=== PATIENT | female | born 1960 | race Caucasian/White ===

== ENCOUNTER 2018-04-12 18:02 | Observation (INO) ==
[2018-04-12] MEDS ORDERED: Sod Chloride 0.9% Inj 1,000 ML IV.SIG ONE (18:49)
[2018-04-12] MEDS ORDERED: Sod Chloride 0.9% Inj 1,000 ML IV.SIG SCH ×2 (19:00→20:00)
[2018-04-12 19:08] LABS: VBG Base Excess 0.4 mmol/L (-2-2); VBG Blood Gas Oxygen Content 8.4 Vol % (9.0-17.0); VBG PCO2 28 mmHG (44-48); VBG PH 7.53 (7.360-7.400); VBG PO2 30 mmHG (35-40)
[2018-04-12 19:10] LABS: Baso % (Auto) 0.2 % (0.0-2.0); Hemoglobin 10.8 gm/dL (11.6-15.3); Lymph # (Auto) 0.7 th/mm3 (1.0-4.8); Lymph % (Auto) 6.2 % (9.0-44.0); Mean Corpuscular HGB Conc 32.7 % (32.0-36.0); Mean Corpuscular Hemoglobin 29.2 pg (27.0-34.0); Mean Corpuscular Volume 89.4 fL (80.0-100.0); Mean Platelet Volume 9.6 fL (7.0-11.0); Mono # (Auto) 0.5 th/mm3 (0.0-0.9); Neut # (Auto) 10.3 th/mm3 (1.8-7.7); Neut % (Auto) 89.6 % (16.0-70.0); Platelet Count 228 th/mm3 (150-450); Red Cell Distribution Width 13.2 % (11.6-17.2); White Blood Count 11.5 th/mm3 (4.0-11.0)
--- NOTE | 2018-04-12 19:21 | ED ---
HPI General Chief complaint: Nausea/Vomiting/Diarrhea Stated complaint: vomitting Time Seen by Provider: 04/12/18 18:41 History of Present Illness HPI Narrative: Patient is a 58-year-old female that presents for the evaluation of nausea and vomiting. The patient states that her symptoms began yesterday around 2pm. The patient's daughter is at the bedside and helps provide some of the history. The patient and daughter are visiting from [place]. The patient states that yesterday she started to vomit and has not been able to stop. She also states that she is also experiencing diarrhea which she says started last night. She has not been able to eat or take any of her medications today. The daughter states that she was able to drink half of a Gatorade today. The patient also reports abdominal pain that is located mostly on the left side. She rates her current pain a 7/10 on a pain scale. The patient has a past medical history of type II diabetes and states that she has had a hard time controlling her sugars. Upon review of symptoms the patient denies fever and she does report feeling chills. She denies chest pain. Patient reports some shortness of breath and cough. She states that these symptoms are typical for her to experience after she discontinues her Furosemide. The patient and daughter state that she stopped taking Furosemide for swelling on Friday. The patient denies dizziness and states that she does have a headache which she states she thinks is due to dehydration. Related Data Home Medications Medication Instructions Recorded Confirmed furosemide 40 mg PO DAILY 04/12/18 04/12/18 gabapentin [Neurontin] mg PO TID 04/12/18 lisinopril-hydrochlorothiazide 1 tab PO DAILY 04/12/18 04/12/18 Allergies Allergy/AdvReac Type Severity Reaction Status Date / Time No Known Allergies Allergy Unverified 04/12/18 18:35 [facility] Medical History Medical History CHF (congestive heart failure) (Acute) Diabetes (Acute) Hypertension (Acute) IBS (irritable bowel syndrome) (Acute) Social History Social History Substance History: No History of Abuse Second Hand Smoke Exposure: No Smoking Status: Never smoker How Often Do You Have a Drink Containing Alcohol: Monthly or less Recent Travel in [facility] within the Last 8 Weeks: No Recent Out of Country Travel within the Last 8 Weeks: No Immunization History Tetanus Immunization: <5 Years Exam Narrative Exam Narrative: GENERAL: Well-appearing SKIN: Focused skin assessment warm/dry. HEAD: Atraumatic. Normocephalic. EYES: Pupils equal and round. No scleral icterus. No injection or drainage. ENT: No nasal bleeding or discharge. Mucous membranes pink and moist. Tongue is midline. No uvula deviation. NECK: Trachea midline. No JVD. CARDIOVASCULAR: Regular rate and rhythm. No murmur appreciated. RESPIRATORY: No accessory muscle use. Clear to auscultation. Breath sounds equal bilaterally. GASTROINTESTINAL: Abdomen soft, slightly tender to the epigastric area, nondistended. Hepatic and splenic margins not palpable. MUSCULOSKELETAL: No obvious deformities. No clubbing. No cyanosis. No edema. Full range of motion of the upper and lower extremities bilaterally. 2+ pulses bilaterally. NEUROLOGICAL: Awake and alert. No obvious cranial nerve deficits. Motor grossly within normal limits. Normal speech. PSYCHIATRIC: Appropriate mood and affect; insight and judgment normal. Course Initial Documented Vital Signs Temperature 98.8 F 04/12/18 18:22 Pulse Rate 92 H 04/12/18 18:22 Respiratory Rate 24 04/12/18 18:22 Blood Pressure 186/92 H 04/12/18 18:22 Pulse Oximetry 98 04/12/18 18:22 Last Documented Vital Signs Temperature 98.8 F 04/12/18 18:22 Pulse Rate 98 H 04/12/18 20:43 Respiratory Rate 18 04/12/18 20:43 Blood Pressure 177/79 H 04/12/18 20:43 Pulse Oximetry 97 04/12/18 20:43 Medical Decision Making [facility] Narrative Medical decision making narrative: 58-year-old female that presents to the ED for evaluation of nausea and vomiting and abdominal pain and diarrhea. Patient was properly examined and was found to have signs and symptoms very concerning for enteritis versus DKA. Patient is hyperglycemic on exam. Was told that patient had a blood sugar 600. Labs and imaging were done. Labs and imaging did show what appears to be acute kidney injury with hyperglycemia and slight elevated anion gap of 16. Patient is not acidotic but basic. Case was discussed with my attending Dr. Ovalle who recommends admission. She does recommend an IV dose of insulin as well as fluids. She recommends that I speak with admitting physician to see whether they want to do DKA protocol. Case was discussed with Dr. Tobin agrees to admission to her service. Patient was admitted. Case discussed with patient and the daughter who agree with admission for further treatment and plan. Medical Screen Exam Complete: Yes Emergency Medical Condition: Yes Differential Diagnosis Differential Diagnosis: Nausea and vomiting versus DKA versus gastroenteritis versus gastritis versus CHF versus hyperglycemia versus dehydration Medical Records Medical records reviewed: Yes I reviewed the patient's medical records. Lab Data Lab results reviewed: Yes I reviewed the patient's lab results. Lab results narrative: Acetone elevated Result diagrams: 04/12/18 18:57 04/12/18 18:57 Lab Results 04/12/18 04/12/18 04/12/18 Range/Units 18:45 18:53 18:57 WBC 11.5 H (4.0-11.0) th/mm3 RBC 3.70 L (4.00-5.30) mil/mm3 Hgb 10.8 L (11.6-15.3) gm/dL Hct 33.0 L (35.0-46.0) % MCV 89.4 (80.0-100.0) fL MCH 29.2 (27.0-34.0) pg MCHC 32.7 (32.0-36.0) % RDW 13.2 (11.6-17.2) % Plt Count 228 (150-450) th/mm3 MPV 9.6 (7.0-11.0) fL Neut % (Auto) 89.6 H (16.0-70.0) % Lymph % (Auto) 6.2 L (9.0-44.0) % Aiken % (Auto) 4.0 (0.0-8.0) % Eos % (Auto) 0.0 (0.0-4.0) % Baso % (Auto) 0.2 (0.0-2.0) % Neut # (Auto) 10.3 H (1.8-7.7) th/mm3 Lymph # (Auto) 0.7 L (1.0-4.8) th/mm3 Aiken # (Auto) 0.5 (0.0-0.9) th/mm3 Eos # (Auto) 0.0 (0.0-0.4) th/mm3 Baso # (Auto) 0.0 (0.0-0.2) th/mm3 WBC Differential . Differential Comment Auto diff final Puncture Site Iv Patient Temperature 98.6 VBG pH 7.53 H* (7.360-7.400) VBG pCO2 28 L (44-48) mmHG VBG pO2 30 L (35-40) mmHG VBG HCO3 23 (22-26) mmol/L VBG O2 Saturation 58 L (70-76) % VBG O2 Content 8.4 L (9.0-17.0) Vol % VBG Base Excess 0.4 (-2-2) mmol/L VBG Carboxyhemoglobin 1.9 (0-4) % VBG Methemoglobin 0.7 (0-2) % Hemoglobin 10.2 L (12.0-16.0) G/DL Inspired O2 21 % Critical Value Yes Sodium (136-145) meq/L Potassium (3.5-5.1) meq/L Chloride (98-107) meq/L Carbon Dioxide (21.0-32.0) meq/L Anion Gap (5-15) meq/L BUN (7-18) mg/dL Creatinine (0.50-1.00) mg/dL Estimated GFR (>89) mL/min POC Glucose Greater than 600 H* (68-110) mg/dl Random Glucose (74-106) mg/dL Calcium (8.5-10.1) mg/dL Total Bilirubin (0.2-1.0) mg/dL AST (15-37) U/L ALT (10-53) U/L Alkaline Phosphatase (45-117) U/L Troponin I (0.02-0.05) ng/mL Total Protein (6.4-8.2) g/dL Albumin (3.4-5.0) g/dL Lipase (73-393) U/L Beta-Hydroxybutyric Acd (0.00-0.39) mmol/L Urine Color (Yellw/Straw) Urine Clarity (Clear) Urine pH (5.0-8.5) Ur Specific Jacobson (1.002-1.035) Urine Protein (Neg-Trace) mg/dL Urine Glucose (UA) (Negative) mg/dL Urine Ketones (Negative) mg/dL Urine Occult Blood (Negative) Urine Nitrate (Negative) Urine Bilirubin (Negative) Urine Urobilinogen (Less than 2) mg/dL Ur Leukocyte Esterase (Negative) Urine RBC (0-3) /hpf Urine WBC (0-5) /hpf Ur Squamous Epith Cells (0-5) /hpf Urine Bacteria (None) /hpf Urine Mucus (Occasional) /lpf Micro UA Comment Ur Microscopic Review Urine Culture Comments 04/12/18 04/12/18 04/12/18 Range/Units 18:57 19:32 21:16 WBC (4.0-11.0) th/mm3 RBC (4.00-5.30) mil/mm3 Hgb (11.6-15.3) gm/dL Hct (35.0-46.0) % MCV (80.0-100.0) fL MCH (27.0-34.0) pg MCHC (32.0-36.0) % RDW (11.6-17.2) % Plt Count (150-450) th/mm3 MPV (7.0-11.0) fL Neut % (Auto) (16.0-70.0) % Lymph % (Auto) (9.0-44.0) % Aiken % (Auto) (0.0-8.0) % Eos % (Auto) (0.0-4.0) % Baso % (Auto) (0.0-2.0) % Neut # (Auto) (1.8-7.7) th/mm3 Lymph # (Auto) (1.0-4.8) th/mm3 Aiken # (Auto) (0.0-0.9) th/mm3 Eos # (Auto) (0.0-0.4) th/mm3 Baso # (Auto) (0.0-0.2) th/mm3 WBC Differential Differential Comment Puncture Site Patient Temperature VBG pH (7.360-7.400) VBG pCO2 (44-48) mmHG VBG pO2 (35-40) mmHG VBG HCO3 (22-26) mmol/L VBG O2 Saturation (70-76) % VBG O2 Content (9.0-17.0) Vol % VBG Base Excess (-2-2) mmol/L VBG Carboxyhemoglobin (0-4) % VBG Methemoglobin (0-2) % Hemoglobin (12.0-16.0) G/DL Inspired O2 % Critical Value Sodium 131 L (136-145) meq/L Potassium 4.1 (3.5-5.1) meq/L Chloride 92 L (98-107) meq/L Carbon Dioxide 23.1 (21.0-32.0) meq/L Anion Gap 16 H (5-15) meq/L BUN 29 H (7-18) mg/dL Creatinine 1.56 H (0.50-1.00) mg/dL Estimated GFR 34 L (>89) mL/min POC Glucose 525 H* (68-110) mg/dl Random Glucose 624 H* (74-106) mg/dL Calcium 9.0 (8.5-10.1) mg/dL Total Bilirubin 0.8 (0.2-1.0) mg/dL AST 21 (15-37) U/L ALT 15 (10-53) U/L Alkaline Phosphatase 116 (45-117) U/L Troponin I 0.04 (0.02-0.05) ng/mL Total Protein 8.2 (6.4-8.2) g/dL Albumin 2.9 L (3.4-5.0) g/dL Lipase 44 L (73-393) U/L Beta-Hydroxybutyric Acd 2.69 H (0.00-0.39) mmol/L Urine Color Yellow (Yellw/Straw) Urine Clarity Clear (Clear) Urine pH 7.0 (5.0-8.5) Ur Specific Jacobson 1.025 (1.002-1.035) Urine Protein 100 H (Neg-Trace) mg/dL Urine Glucose (UA) 500 or greater (Negative) mg/dL Urine Ketones 20 (Negative) mg/dL Urine Occult Blood Moderate H (Negative) Urine Nitrate Negative (Negative) Urine Bilirubin Negative (Negative) Urine Urobilinogen Less than 2 (Less than 2) mg/dL Ur Leukocyte Esterase Negative (Negative) Urine RBC 2 (0-3) /hpf Urine WBC Less than 1 (0-5) /hpf Ur Squamous Epith Cells 1 (0-5) /hpf Urine Bacteria Occasional H (None) /hpf Urine Mucus Few H (Occasional) /lpf Micro UA Comment Culture not ind Ur Microscopic Review Not Reportable Urine Culture Comments Culture not ind 04/12/18 Range/Units 22:10 WBC (4.0-11.0) th/mm3 RBC (4.00-5.30) mil/mm3 Hgb (11.6-15.3) gm/dL Hct (35.0-46.0) % MCV (80.0-100.0) fL MCH (27.0-34.0) pg MCHC (32.0-36.0) % RDW (11.6-17.2) % Plt Count (150-450) th/mm3 MPV (7.0-11.0) fL Neut % (Auto) (16.0-70.0) % Lymph % (Auto) (9.0-44.0) % Aiken % (Auto) (0.0-8.0) % Eos % (Auto) (0.0-4.0) % Baso % (Auto) (0.0-2.0) % Neut # (Auto) (1.8-7.7) th/mm3 Lymph # (Auto) (1.0-4.8) th/mm3 Aiken # (Auto) (0.0-0.9) th/mm3 Eos # (Auto) (0.0-0.4) th/mm3 Baso # (Auto) (0.0-0.2) th/mm3 WBC Differential Differential Comment Puncture Site Patient Temperature VBG pH (7.360-7.400) VBG pCO2 (44-48) mmHG VBG pO2 (35-40) mmHG VBG HCO3 (22-26) mmol/L VBG O2 Saturation (70-76) % VBG O2 Content (9.0-17.0) Vol % VBG Base Excess (-2-2) mmol/L VBG Carboxyhemoglobin (0-4) % VBG Methemoglobin (0-2) % Hemoglobin (12.0-16.0) G/DL Inspired O2 % Critical Value Sodium (136-145) meq/L Potassium (3.5-5.1) meq/L Chloride (98-107) meq/L Carbon Dioxide (21.0-32.0) meq/L Anion Gap (5-15) meq/L BUN (7-18) mg/dL Creatinine (0.50-1.00) mg/dL Estimated GFR (>89) mL/min POC Glucose 464 H* (68-110) mg/dl Random Glucose (74-106) mg/dL Calcium (8.5-10.1) mg/dL Total Bilirubin (0.2-1.0) mg/dL AST (15-37) U/L ALT (10-53) U/L Alkaline Phosphatase (45-117) U/L Troponin I (0.02-0.05) ng/mL Total Protein (6.4-8.2) g/dL Albumin (3.4-5.0) g/dL Lipase (73-393) U/L Beta-Hydroxybutyric Acd (0.00-0.39) mmol/L Urine Color (Yellw/Straw) Urine Clarity (Clear) Urine pH (5.0-8.5) Ur Specific Jacobson (1.002-1.035) Urine Protein (Neg-Trace) mg/dL Urine Glucose (UA) (Negative) mg/dL Urine Ketones (Negative) mg/dL Urine Occult Blood (Negative) Urine Nitrate (Negative) Urine Bilirubin (Negative) Urine Urobilinogen (Less than 2) mg/dL Ur Leukocyte Esterase (Negative) Urine RBC (0-3) /hpf Urine WBC (0-5) /hpf Ur Squamous Epith Cells (0-5) /hpf Urine Bacteria (None) /hpf Urine Mucus (Occasional) /lpf Micro UA Comment Ur Microscopic Review Urine Culture Comments Imaging Data Attestation: I personally reviewed and interpreted this imaging study as follows : Radiologist's impression: Abdomen/Pelvis CT 04/12/18 19:48 CONCLUSION: 1. Greater than 4 cm area of masslike consolidation in the right lower lobe adjacent to the right hemidiaphragm with associated bilateral pleural effusions , right greater than left. Since there are portions of this opacity that are devoid of air bronchograms, recommend follow-up imaging to radiographic resolution to help exclude a coexistent neoplasm. 2. No concerning findings in the abdomen or pelvis. Discharge Plan Discharge Disposition Patient Disposition: 30 Still Patient Discharge Details Diagnosis: Intractable nausea and vomiting, BELKIS (acute kidney injury), Acute hyperglycemia Physicians Team ED Provider: Luis Boykin ED Midlevel Provider: Sivakumar Romano Primary Care Provider: UNKNOWN, Attending Provider: Melvi Tobin Discharge Interventions Interventions: ED Discharge Assessment Last Done: 04/12/18 22:28 Status ED Status: Left Department Discharge Information Discharge Date/Time: 04/12/18 22:28
[2018-04-12 19:33] LABS: Anion Gap 16 meq/L (5-15); Beta Hydroxybutyric Acid 2.69 mmol/L (0.00-0.39); Carbon Dioxide 23.1 meq/L (21.0-32.0); Chloride 92 meq/L (98-107); Potassium 4.1 meq/L (3.5-5.1); Sodium 131 meq/L (136-145); Total Protein 8.2 g/dL (6.4-8.2)
[2018-04-12 19:34] LABS: Alanine Aminotransferase 15 U/L (10-53); Albumin 2.9 g/dL (3.4-5.0); Alkaline Phosphatase 116 U/L (45-117); Aspartate Aminotransferase 21 U/L (15-37); Blood Urea Nitrogen 29 mg/dL (7-18); Glomerular Filtration Rate 34 mL/min (>89); Lipase 44 U/L (73-393); Troponin I 0.04 ng/mL (0.02-0.05)
[2018-04-12 19:36] LABS: Glucose,Random 624 mg/dL (74-106)
[2018-04-12 20:02] LABS: Bacteria,Urine Occasional /hpf; Bilirubin,Urine Negative (Negative); Clarity,Urine Clear (Clear); Color,Urine Yellow (Yellw/Straw); Glucose,Urine (UA) 500 or Greater mg/dL (Negative); Leukocyte Esterase,Urine Negative (Negative); Mucus,Urine Few /lpf (Occasional); Nitrite,Urine Negative (Negative); Specific Gravity,Urine 1.025 (1.002-1.035); Squamous Epithelial Cell,Urine 1 /hpf (0-5)
--- NOTE | 2018-04-12 20:15 | CT ---
EXAM DATE: 04/12/2018 8:00 PM EDT AGE/SEX: 58 years / Female INDICATIONS: Diffuse abdomen pain with nausea and diarrhea for two days. CLINICAL DATA: This is the patient's initial encounter. Patient reports that signs and symptoms have been present for 1 day and indicates a pain score of 7/10. MEDICAL/SURGICAL HISTORY: Congestive heart failure. Diabetes. Hypertension. None. RADIATION DOSE: 6.77 CTDI (mGy) COMPARISON: No prior exams available for comparison. TECHNIQUE: Multiple contiguous axial images were obtained through the abdomen. Images were obtained using multiple row detector helical technique. Using automated exposure control and adjustment of the mA and/or kV according to patient size, radiation dose was kept as low as reasonably achievable to o btain optimal diagnostic quality images. DICOM format image data is available electronically for rev iew and comparison. FINDINGS: Lower Lungs: Focal area of consolidation in the right lower lobe measures 4.5 cm in oblique dimension and 3 cm in superior/inferior extent. The lower portion of the opacity is devoid of air bronchograms and there are some air bronchograms in the upper one third. There are bilateral pleural effusions, r ight greater than left with a right pleural effusion measuring 3.3 cm and the left pleural effusion m easuring 1.0 cm. Liver: Moderate hepatomegaly with craniocaudal 6/caudal dimension 19.1 cm. No focal lesions for nonco ntrast technique. Cholecystectomy. Spleen: Homogeneous density without enlargement. Pancreas: Unremarkable without mass or calcification. Kidneys: Normal in size and shape. No evidence of mass or hydronephrosis. Adrenal Glands: Unremarkable. Aorta: The aorta and proximal iliac vessels are grossly unremarkable without aneurysmal dilation. Bowel/Mesentery: The bowel loops are grossly unremarkable. The cecum and sigmoid colon have a normal configuration. Abdominal Wall: Intact. Retroperitoneum: No evidence of adenopathy in the retrocrural, para-aortic, or deep pelvic regions. Bladder: Contours are smooth. Reproductive Organs: No abnormal masses or calcifications seen. Inguinal: The inguinal region is unremarkable without evidence of adenopathy. Bony Structures: Unremarkable. CONCLUSION: 1. Greater than 4 cm area of masslike consolidation in the right lower lobe adjacent to the right he midiaphragm with associated bilateral pleural effusions, right greater than left. Since there are por tions of this opacity that are devoid of air bronchograms, recommend follow-up imaging to radiographi c resolution to help exclude a coexistent neoplasm. 2. No concerning findings in the abdomen or pelvis. Electronically signed by: Dick Zepeda MD 04/12/2018 8:14 PM EDT
[2018-04-12] MEDS ORDERED: Dextrose 50% in Water 50 ML Vial IV.PUSH PRN (20:31)
[2018-04-12] MEDS ORDERED: Acetaminophen 325 MG Tablet PO PRN (20:32)
[2018-04-12] MEDS ORDERED: Bisacodyl 10 MG Supp RECTAL PRN (20:32)
--- NOTE | 2018-04-12 20:35 | P.HPIM ---
History of Present Illness Primary Care Physician: UNKNOWN History of Present Illness: This is a 66-year-old female with a PMH of HTN, DM, IBS and CHF (Unknown EF) presented to ER with complaints of abdominal pain, nausea and vomiting starting yesterday. Denies fever, chills or diarrhea. No reported sick contacts or recent travel. Reports decreased PO intake due to symptoms. On arrival, BP 186 /92, HR 92, O2 sat 98% on RA, Afebrile. WBC 11.5. Creatinine 1.56, no previous labs for comparison. AG 16. BS greater than 600. Beta hydroxy 2.69. Lipase 44. UA negative for UTI. The Abdomen/Pelvis no acute abdominal findings, 4 cm masslike consolidation right lower lobe recommendation for follow -up imaging. S/p Zofran, Reglan and Morphine in ER w/ minimal improvement. - Diagnosis (1) Intractable nausea and vomiting (2) Renal insufficiency (3) PNA (pneumonia) (4) DM (diabetes mellitus) Review of Systems PAST FAMILY HISTORY: Reviewed. No h/o DM or CAD All other systems reviewed negative except as stated [facility] - History History Provided By: Patient - Medical History Medical History: Medical History (Last Updated 04/12/18 @ 18:36 by Breana Gastelum) CHF (congestive heart failure) Diabetes Hypertension IBS (irritable bowel syndrome) - Tobacco History Second Hand Smoke Exposure: No Smoking Status: Never smoker - Alcohol History How Often Do You Have a Drink Containing Alcohol: Monthly or less - Substance Use History Substance History: No History of Abuse - Travel History Recent Travel in the [place] Within the Last 8 Weeks: No Recent Travel Out of the Country Within the Last 8 Weeks: No - Immunization History Tetanus Immunization: <5 Years Medications and Allergies Active Medications: Active Medications Sodium Chloride (Ns Inj) 1,000 mls @ 0 mls/hr IV.SIG BOLUS ALVARADO Allergies Allergy/AdvReac Type Severity Reaction Status Date / Time No Known Allergies Allergy Unverified 04/12/18 18:35 Home Medications Medication Instructions Recorded Confirmed Type furosemide 40 mg PO DAILY 04/12/18 04/12/18 History gabapentin [Neurontin] mg PO TID 04/12/18 History lisinopril-hydrochlorothiazide 1 tab PO DAILY 04/12/18 04/12/18 History Exam Vital signs: Vital Signs 04/12/18 18:22 Temperature 98.8 F Pulse Rate 92 H Respiratory Rate 24 Blood Pressure 186/92 H Pulse Oximetry 98 Intake & Output 04/12/18 04/12/18 04/13/18 06:59 18:59 06:59 Intake Total 1000 / 1000 Balance 1000 / 1000 Weight 63.503 kg Intake: IV 1000 / 1000 NS Inj 1,000 ML @ Wide Open IV. 1000 / 1000 SIG BOLUS ONE Rx#:[id number] Narrative: PE: GENERAL: Pleasant middle-aged white female in no acute distress, appears weak/ tired. SKIN: Focused skin assessment warm and dry. HEENT: PERRLA, EOMI. No scleral icterus or conjunctival pallor. No lid lag or facial droop. CARDIOVASCULAR: Regular rate and rhythm. No obvious murmurs to auscultation. No chest tenderness to palpation. RESPIRATORY: No obvious rhonchi or wheezing. Clear to auscultation. Breath sounds equal bilaterally. GASTROINTESTINAL: Abdomen soft, non-tender, nondistended. BS normal. MUSCULOSKELETAL: Extremities without clubbing, cyanosis, or edema. No obvious deformities. NEUROLOGICAL: Awake, alert and oriented x4. No focal neurologic deficits. Moving both upper and lower extremities spontaneously. PSYCHIATRIC: Appropriate mood and affect. Insight and judgment normal. Results - Labs CBC & Chem 7: 04/12/18 18:57 04/12/18 18:57 Labs: Short CBC 04/12/18 Range/Units 18:57 WBC 11.5 H (4.0-11.0) th/mm3 Hgb 10.8 L (11.6-15.3) gm/dL Hct 33.0 L (35.0-46.0) % Plt Count 228 (150-450) th/mm3 [facility] 04/12/18 18:57 Sodium 131 L Potassium 4.1 Chloride 92 L Carbon Dioxide 23.1 BUN 29 H Creatinine 1.56 H Calcium 9.0 Cardiac Enzymes 04/12/18 Range/Units 18:57 Troponin I 0.04 (0.02-0.05) ng/mL Liver Function 04/12/18 Range/Units 18:57 Total Bilirubin 0.8 (0.2-1.0) mg/dL AST 21 (15-37) U/L ALT 15 (10-53) U/L Alkaline Phosphatase 116 (45-117) U/L Albumin 2.9 L (3.4-5.0) g/dL Urine 04/12/18 Range/Units 19:32 Urine Color Yellow (Yellw/Straw) Urine Clarity Clear (Clear) Urine pH 7.0 (5.0-8.5) Ur Specific Powell 1.025 (1.002-1.035) Urine Protein 100 H (Neg-Trace) mg/dL Urine Glucose (UA) 500 or greater (Negative) mg/dL - Imaging Impressions Abdomen/Pelvis CT 04/12/18 19:48 CONCLUSION: 1. Greater than 4 cm area of masslike consolidation in the right lower lobe adjacent to the right hemidiaphragm with associated bilateral pleural effusions , right greater than left. Since there are portions of this opacity that are devoid of air bronchograms, recommend follow-up imaging to radiographic resolution to help exclude a coexistent neoplasm. 2. No concerning findings in the abdomen or pelvis. Caprini VTE Risk Assessment Caprini VTE Risk Assessment: No/Low Risk (score <= 1) Caprini Risk Assessment Model: Point Value = 1 Point Value = 2 Point Value = 3 Point Value = 5 Age 41-60 Minor surgery BMI > 25 kg/m2 Swollen legs Varicose veins or History of unexplained or recurrent spontaneous Oral contraceptives or hormone replacement Sepsis (< 1 month) Serious lung disease, including pneumonia (< 1 month) Abnormal pulmonary function Acute myocardial infarction Congestive heart failure (< 1 month) History of inflammatory bowel disease Medical patient at bed rest Age 61-74 Arthroscopic surgery Major open surgery (> 45 min) Laparoscopic surgery (> 45 min) Malignancy Confined to bed (> 72 hours) Immobilizing plaster cast Central venous access Age >= 75 History of VTE Family history of VTE Factor V Leiden Prothrombin [id number] Lupus anticoagulant Anticardiolipin antibodies Elevated serum homocysteine Heparin-induced thrombocytopenia Other congenital or acquired thrombophilia Stroke (< 1 month) Elective arthroplasty Hip, pelvis, or leg fracture Acute spinal cord injury (< 1 month) Prophylaxis Regimen: Total Risk Factor Score Risk Level Prophylaxis Regimen 0-1 Low Early ambulation 2 Moderate Order ONE of the following: *Sequential Compression Device (SCD) *Heparin 5000 units SQ BID 3-4 Higher Order ONE of the following medications: *Heparin 5000 units SQ TID *Enoxaparin/Lovenox 40 mg SQ daily (WT < 150 kg, CrCl > 30 mL/min) *Enoxaparin/Lovenox 30 mg SQ daily (WT < 150 kg, CrCl > 10-29 mL/min) *Enoxaparin/Lovenox 30 mg SQ BID (WT < 150 kg, CrCl > 30 mL/min) AND/OR *Sequential Compression Device (SCD) 5 or more Highest Order ONE of the following medications: *Heparin 5000 units SQ TID (Preferred with Epidurals) *Enoxaparin/Lovenox 40 mg SQ daily (WT < 150 kg, CrCl > 30 mL/min) *Enoxaparin/Lovenox 30 mg SQ daily (WT < 150 kg, CrCl > 10-29 mL/min) *Enoxaparin/Lovenox 30 mg SQ BID (WT < 150 kg, CrCl > 30 mL/min) AND *Sequential Compression Device (SCD) Assessment and Plan - Assessment (1) Intractable nausea and vomiting Code(s): R11.2 - Nausea with vomiting, unspecified Status: Acute (2) Renal insufficiency Code(s): N28.9 - Disorder of kidney and ureter, unspecified Status: Acute (3) PNA (pneumonia) Code(s): J18.9 - Pneumonia, unspecified organism Status: Acute (4) DM (diabetes mellitus) Code(s): E11.9 - Type 2 diabetes mellitus without complications Status: Acute - Plan A/P: 1. Intractable Nausea/Vomiting: s/p Zofran/Reglan w/ minimal improvement, continue w/ antiemetics and analgesics as needed, CT Abd/Pelvis w/ no acute intra-abdominal pathology, images reviewed, likely gastroenteritis. +Decreased PO intake, IVF for hydration, diet as tolerated. 2. PNA: CT Abd/Pelvis w/ 4cm masslike area of consolidation RLL, start Levaquin IV, pt will need outpatient follow up imaging to exclude underlying neoplasm. 3. BELKIS: Creatinine 1.56, no previous labs for comparison, presumably new, IVF for hydration, U/a negative for UTI, monitor I/O, repeat labs in am. 4. DM: Uncontrolled, mild acidosis but no clear DKA, BS >600, s/p Insulin in ER, IVF for hydration, Sliding scale w/ Accu-Cheks. Levemir 10u, check Hgb A1c. 5. DVT Prophylaxis: SCD/Teds 6. Social work for d/c planning as needed. 7. Case discussed w/ ER physician at length, labs/records/imaging reviewed by me.
[2018-04-12] MEDS ORDERED: Sod Chloride 0.9% Inj 1,000 ML IV.CONT SCH (21:00)
[2018-04-12] MEDS: Senna/Docusate Sodium 8.6/50 MG Tablet PO SCH (21:13)
[2018-04-12] MEDS: Insulin NovoLOG Aspart Correctional Sugar Inj SQ SCH (21:34)
[2018-04-12] MEDS: Insulin Detemir Inj 1,000 UNIT/10 ML Vial SQ SCH (21:36)
[2018-04-13 07:47] LABS: Baso % (Auto) 0.3 % (0.0-2.0); Hematocrit 25.4 % (35.0-46.0); Hemoglobin 8.5 gm/dL (11.6-15.3); Lymph # (Auto) 1.1 th/mm3 (1.0-4.8); Lymph % (Auto) 11.9 % (9.0-44.0); Mean Corpuscular HGB Conc 33.7 % (32.0-36.0); Mean Platelet Volume 9.3 fL (7.0-11.0); Mono # (Auto) 0.6 th/mm3 (0.0-0.9); Mono % (Auto) 7.1 % (0.0-8.0); Neut # (Auto) 7.2 th/mm3 (1.8-7.7); Neut % (Auto) 80.7 % (16.0-70.0); Platelet Count 193 th/mm3 (150-450); Red Blood Count 2.85 mil/mm3 (4.00-5.30); Red Cell Distribution Width 13.2 % (11.6-17.2); White Blood Count 8.9 th/mm3 (4.0-11.0)
[2018-04-13 08:13] LABS: Alanine Aminotransferase 14 U/L (10-53); Albumin 2.3 g/dL (3.4-5.0); Alkaline Phosphatase 82 U/L (45-117); Anion Gap 11 meq/L (5-15); Aspartate Aminotransferase 26 U/L (15-37); Blood Urea Nitrogen 39 mg/dL (7-18); Calcium 8.1 mg/dL (8.5-10.1); Carbon Dioxide 25.8 meq/L (21.0-32.0); Chloride 100 meq/L (98-107); Glomerular Filtration Rate 28 mL/min (>89); Glucose,Random 266 mg/dL (74-106); Potassium 3.8 meq/L (3.5-5.1); Sodium 137 meq/L (136-145); Total Protein 6.5 g/dL (6.4-8.2)
[2018-04-13] MEDS: Senna/Docusate Sodium 8.6/50 MG Tablet PO SCH ×2 (08:55→21:43)
[2018-04-13] MEDS: Insulin NovoLOG Aspart Correctional Sugar Inj SQ SCH ×4 (10:04→21:43)
[2018-04-13] MEDS: Sod Chloride 0.9% Inj 1,000 ML IV.CONT SCH ×2 (10:05→20:50)
--- NOTE | 2018-04-13 10:18 | P.PN ---
Subjective Interval history: Follow-up for gastroenteritis, BELKIS, hyperglycemia, pneumonia. Patient seen with her daughter at bedside. The patient and family is visiting from [place], plans to drive back home whenever the patient is feeling well. The patient states she has had these symptoms since Wednesday 04/11. Denies any sick contacts. Patient reports continued nausea overnight, but no vomiting. She states she attempted breakfast this morning however became very nauseous with some dry heaving. Denies any abdominal pain. Has not had any further diarrhea since Friday. Denies any fevers or chills. Denies any history of kidney disease. Blood sugars improving, currently in the 200s. She has no other medical complaints at this time. Physical Exam Vital signs: Vital Signs 04/12/18 18:22 04/12/18 20:43 04/13/18 00:00 Temperature 98.8 F 98.2 F Pulse Rate 92 H 98 H 80 Respiratory Rate 24 18 15 Blood Pressure 186/92 H 177/79 H 98/47 L Pulse Oximetry 98 97 96 04/13/18 01:37 04/13/18 04:00 04/13/18 05:24 Temperature 98.6 F 98.3 F Pulse Rate 82 80 82 Respiratory Rate 16 16 15 Blood Pressure 105/50 L 119/57 L 135/63 Pulse Oximetry 98 99 99 04/13/18 07:40 Temperature 98.5 F Pulse Rate 77 Respiratory Rate 20 Blood Pressure 107/53 L Pulse Oximetry 95 Intake & Output 04/12/18 04/13/18 04/13/18 18:59 06:59 18:59 Intake Total 1150 / 1150 1000 / 1000 Balance 1150 / 1150 1000 / 1000 Weight 63.503 kg 66.3 kg Intake: IV 1150 / 1150 1000 / 1000 NS Inj 1,000 ML @ 100 mls/hr IV 1000 / 1000 .CONT .Q10H ALVARADO Rx#:[id number] Levaquin 750 mg Premix Inj 150 150 / 150 ML @ 100 mls/hr IV.SIG Q24H ALVARADO Rx#:[id number] NS Inj 1,000 ML @ Wide Open IV. 1000 / 1000 SIG BOLUS ONE Rx#:[id number] Other: # Voids 0 Date of Last Bowel Movement 04/12/18 Narrative: GENERAL: Well-nourished, well-developed patient in NAD. Nauseous with some dry heaving throughout exam, appears weak and tired. SKIN: Warm and dry. No rash. HEENT: Normocephalic. Atraumatic. Pupils equal and round. Mucous membranes pink and moist. NECK: Supple. Trachea midline. CARDIOVASCULAR: Regular rate and rhythm. No murmur appreciated. RESPIRATORY: No accessory muscle use. Clear to auscultation. Breath sounds equal bilaterally. GASTROINTESTINAL: Abdomen soft, non-tender, nondistended. Normoactive bowel sounds x4. MUSCULOSKELETAL: No obvious deformities. Extremities without clubbing, cyanosis , or edema. NEUROLOGICAL: Awake and alert. No obvious cranial nerve deficits. Motor grossly within normal limits. Moving all extremities spontaneously. Normal speech. PSYCHIATRIC: Appropriate mood and affect; insight and judgment normal. Results - Labs CBC & Chem 7: 04/13/18 06:50 04/13/18 06:50 Laboratory Results - last 24 hr 04/12/18 04/12/18 04/12/18 18:45 18:53 18:57 WBC 11.5 H RBC 3.70 L Hgb 10.8 L Hct 33.0 L MCV 89.4 MCH 29.2 MCHC 32.7 RDW 13.2 Plt Count 228 MPV 9.6 Neut % (Auto) 89.6 H Lymph % (Auto) 6.2 L Jackson % (Auto) 4.0 Eos % (Auto) 0.0 Baso % (Auto) 0.2 Neut # (Auto) 10.3 H Lymph # (Auto) 0.7 L Jackson # (Auto) 0.5 Eos # (Auto) 0.0 Baso # (Auto) 0.0 WBC Differential . Differential Comment Auto diff final Puncture Site Iv Patient Temperature 98.6 VBG pH 7.53 H* VBG pCO2 28 L VBG pO2 30 L VBG HCO3 23 VBG O2 Saturation 58 L VBG O2 Content 8.4 L VBG Base Excess 0.4 VBG Carboxyhemoglobin 1.9 VBG Methemoglobin 0.7 Hemoglobin 10.2 L Inspired O2 21 Critical Value Yes Sodium Potassium Chloride Carbon Dioxide Anion Gap BUN Creatinine Estimated GFR POC Glucose Greater than 600 H* Random Glucose Calcium Total Bilirubin AST ALT Alkaline Phosphatase Troponin I Total Protein Albumin Lipase Beta-Hydroxybutyric Acd Urine Color Urine Clarity Urine pH Ur Specific [place] Urine Protein Urine Glucose (UA) Urine Ketones Urine Occult Blood Urine Nitrate Urine Bilirubin Urine Urobilinogen Ur Leukocyte Esterase Urine RBC Urine WBC Ur Squamous Epith Cells Urine Bacteria Urine Mucus Micro UA Comment Ur Microscopic Review Urine Culture Comments 04/12/18 04/12/18 04/12/18 18:57 19:32 21:16 WBC RBC Hgb Hct MCV MCH MCHC RDW Plt Count MPV Neut % (Auto) Lymph % (Auto) Jackson % (Auto) Eos % (Auto) Baso % (Auto) Neut # (Auto) Lymph # (Auto) Jackson # (Auto) Eos # (Auto) Baso # (Auto) WBC Differential Differential Comment Puncture Site Patient Temperature VBG pH VBG pCO2 VBG pO2 VBG HCO3 VBG O2 Saturation VBG O2 Content VBG Base Excess VBG Carboxyhemoglobin VBG Methemoglobin Hemoglobin Inspired O2 Critical Value Sodium 131 L Potassium 4.1 Chloride 92 L Carbon Dioxide 23.1 Anion Gap 16 H BUN 29 H Creatinine 1.56 H Estimated GFR 34 L POC Glucose 525 H* Random Glucose 624 H* Calcium 9.0 Total Bilirubin 0.8 AST 21 ALT 15 Alkaline Phosphatase 116 Troponin I 0.04 Total Protein 8.2 Albumin 2.9 L Lipase 44 L Beta-Hydroxybutyric Acd 2.69 H Urine Color Yellow Urine Clarity Clear Urine pH 7.0 Ur Specific [place] 1.025 Urine Protein 100 H Urine Glucose (UA) 500 or greater Urine Ketones 20 Urine Occult Blood Moderate H Urine Nitrate Negative Urine Bilirubin Negative Urine Urobilinogen Less than 2 Ur Leukocyte Esterase Negative Urine RBC 2 Urine WBC Less than 1 Ur Squamous Epith Cells 1 Urine Bacteria Occasional H Urine Mucus Few H Micro UA Comment Culture not ind Ur Microscopic Review Not Reportable Urine Culture Comments Culture not ind 04/12/18 04/13/18 04/13/18 22:10 05:20 06:50 WBC 8.9 RBC 2.85 L Hgb 8.5 L D Hct 25.4 L MCV 89.0 MCH 30.0 MCHC 33.7 RDW 13.2 Plt Count 193 MPV 9.3 Neut % (Auto) 80.7 H Lymph % (Auto) 11.9 Jackson % (Auto) 7.1 Eos % (Auto) 0.0 Baso % (Auto) 0.3 Neut # (Auto) 7.2 Lymph # (Auto) 1.1 Jackson # (Auto) 0.6 Eos # (Auto) 0.0 Baso # (Auto) 0.0 WBC Differential . Differential Comment Auto diff final Puncture Site Patient Temperature VBG pH VBG pCO2 VBG pO2 VBG HCO3 VBG O2 Saturation VBG O2 Content VBG Base Excess VBG Carboxyhemoglobin VBG Methemoglobin Hemoglobin Inspired O2 Critical Value Sodium Potassium Chloride Carbon Dioxide Anion Gap BUN Creatinine Estimated GFR POC Glucose 464 H* 323 H Random Glucose Calcium Total Bilirubin AST ALT Alkaline Phosphatase Troponin I Total Protein Albumin Lipase Beta-Hydroxybutyric Acd Urine Color Urine Clarity Urine pH Ur Specific [place] Urine Protein Urine Glucose (UA) Urine Ketones Urine Occult Blood Urine Nitrate Urine Bilirubin Urine Urobilinogen Ur Leukocyte Esterase Urine RBC Urine WBC Ur Squamous Epith Cells Urine Bacteria Urine Mucus Micro UA Comment Ur Microscopic Review Urine Culture Comments 04/13/18 04/13/18 06:50 08:58 WBC RBC Hgb Hct MCV MCH MCHC RDW Plt Count MPV Neut % (Auto) Lymph % (Auto) Jackson % (Auto) Eos % (Auto) Baso % (Auto) Neut # (Auto) Lymph # (Auto) Jackson # (Auto) Eos # (Auto) Baso # (Auto) WBC Differential Differential Comment Puncture Site Patient Temperature VBG pH VBG pCO2 VBG pO2 VBG HCO3 VBG O2 Saturation VBG O2 Content VBG Base Excess VBG Carboxyhemoglobin VBG Methemoglobin Hemoglobin Inspired O2 Critical Value Sodium 137 Potassium 3.8 Chloride 100 D Carbon Dioxide 25.8 Anion Gap 11 BUN 39 H Creatinine 1.86 H Estimated GFR 28 L POC Glucose 261 H Random Glucose 266 H D Calcium 8.1 L D Total Bilirubin 0.3 AST 26 ALT 14 Alkaline Phosphatase 82 Troponin I Total Protein 6.5 D Albumin 2.3 L D Lipase Beta-Hydroxybutyric Acd Urine Color Urine Clarity Urine pH Ur Specific [place] Urine Protein Urine Glucose (UA) Urine Ketones Urine Occult Blood Urine Nitrate Urine Bilirubin Urine Urobilinogen Ur Leukocyte Esterase Urine RBC Urine WBC Ur Squamous Epith Cells Urine Bacteria Urine Mucus Micro UA Comment Ur Microscopic Review Urine Culture Comments - Imaging Impressions Abdomen/Pelvis CT 04/12/18 19:48 CONCLUSION: 1. Greater than 4 cm area of masslike consolidation in the right lower lobe adjacent to the right hemidiaphragm with associated bilateral pleural effusions , right greater than left. Since there are portions of this opacity that are devoid of air bronchograms, recommend follow-up imaging to radiographic resolution to help exclude a coexistent neoplasm. 2. No concerning findings in the abdomen or pelvis. Assessment and Plan - Assessment (1) Intractable nausea and vomiting Code(s): R11.2 - Nausea with vomiting, unspecified Status: Acute (2) Renal insufficiency Code(s): N28.9 - Disorder of kidney and ureter, unspecified Status: Acute (3) PNA (pneumonia) Code(s): J18.9 - Pneumonia, unspecified organism Status: Acute (4) DM (diabetes mellitus) Code(s): E11.9 - Type 2 diabetes mellitus without complications Status: Acute - Plan 66-year-old female with a PMH of HTN, DM, IBS and CHF (Unknown EF) presented to ER with complaints of abdominal pain, nausea and vomiting starting Wednesday 04/11. The patient is visiting from [place]. Intractable Nausea/Vomiting: s/p Zofran/Reglan w/ minimal improvement, continue w/ antiemetics and analgesics as needed, CT Abd/Pelvis w/ no acute intra-abdominal pathology, images reviewed, likely gastroenteritis. +Decreased PO intake, IVF for hydration, diet as tolerated. Community-acquired PNA: CT Abd/Pelvis w/ 4cm masslike area of consolidation RLL , started on Levaquin IV, pt will need outpatient follow up imaging to exclude underlying neoplasm. BELKIS: Creatinine 1.56, no previous labs for comparison, presumably new, IVF for hydration, U/a negative for UTI, monitor I/O, repeat labs shows worsening Cr 1.8. Repeat BMP in am. DM: Uncontrolled, mild acidosis but no clear DKA, BS >600, s/p Insulin in ER, IVF for hydration, Sliding scale w/ Accu-Cheks. Levemir 10u, check Hgb A1c. BG improving, continue to monitor. DVT Prophylaxis: SCD/Teds Discharge Planning: Not yet ready for discharge. Still nauseous and not tolerating oral intake. Also BELKIS worsened today. Repeat BMP in am. Plan to discharge if tolerating oral intake and Creatinine improves. (1) Intractable nausea and vomiting Qualifiers: Vomiting type: unspecified Qualified Code(s): R11.2 - Nausea with vomiting, unspecified
[2018-04-13 16:09] LABS: Hemoglobin A1c 11.6 % (4.3-6.0)
[2018-04-13] MEDS: Insulin Detemir Inj 1,000 UNIT/10 ML Vial SQ SCH (20:49)
[2018-04-14] MEDS: Senna/Docusate Sodium 8.6/50 MG Tablet PO SCH ×2 (08:13→21:21)
[2018-04-14] MEDS: Sod Chloride 0.9% Inj 1,000 ML IV.CONT SCH ×3 (08:13→23:31)
[2018-04-14] MEDS: Insulin NovoLOG Aspart Correctional Sugar Inj SQ SCH ×4 (08:49→21:35)
[2018-04-14 09:59] LABS: Baso % (Auto) 0.2 % (0.0-2.0); Eos % (Auto) 0.1 % (0.0-4.0); Hematocrit 26.6 % (35.0-46.0); Hemoglobin 8.8 gm/dL (11.6-15.3); Lymph # (Auto) 0.8 th/mm3 (1.0-4.8); Lymph % (Auto) 8.4 % (9.0-44.0); Mean Corpuscular HGB Conc 33.1 % (32.0-36.0); Mean Corpuscular Hemoglobin 29.6 pg (27.0-34.0); Mean Corpuscular Volume 89.5 fL (80.0-100.0); Mean Platelet Volume 9.1 fL (7.0-11.0); Mono # (Auto) 0.7 th/mm3 (0.0-0.9); Mono % (Auto) 7.7 % (0.0-8.0); Neut # (Auto) 7.9 th/mm3 (1.8-7.7); Neut % (Auto) 83.6 % (16.0-70.0); Platelet Count 189 th/mm3 (150-450); Red Blood Count 2.98 mil/mm3 (4.00-5.30); Red Cell Distribution Width 13.6 % (11.6-17.2); White Blood Count 9.4 th/mm3 (4.0-11.0)
[2018-04-14 10:32] LABS: Alanine Aminotransferase 18 U/L (10-53); Albumin 2.5 g/dL (3.4-5.0); Alkaline Phosphatase 79 U/L (45-117); Anion Gap 10 meq/L (5-15); Aspartate Aminotransferase 34 U/L (15-37); Blood Urea Nitrogen 36 mg/dL (7-18); Calcium 8.4 mg/dL (8.5-10.1); Carbon Dioxide 23.6 meq/L (21.0-32.0); Chloride 104 meq/L (98-107); Glomerular Filtration Rate 39 mL/min (>89); Glucose,Random 109 mg/dL (74-106); Potassium 3.5 meq/L (3.5-5.1); Sodium 138 meq/L (136-145); Total Protein 6.9 g/dL (6.4-8.2)
--- NOTE | 2018-04-14 13:19 | CT ---
EXAM DATE: 04/14/2018 12:38 PM EDT AGE/SEX: 58 years / Female INDICATIONS: Patient with diffuse abdominal pain, nausea and diarrhea with abnormal abdomen CT demon strating a 4 cm area of masslike consolidation in the right lower lobe. CLINICAL DATA: This is the patient's initial encounter. Patient reports that signs and symptoms have been present for 1 day and indicates a pain score of 0/10. MEDICAL/SURGICAL HISTORY: Congestive heart failure. Diabetes. Hypertension. None. RADIATION DOSE: 7.92 CTDI (mGy) [place] [facility] [place]/O [place]AST[place] 04/12/2018. . TECHNIQUE: Multiple contiguous axial images were obtained through the chest without contrast. Image s were obtained in suspended respiration using multiple row detector helical technique. Using automa carlos exposure control and adjustment of the mA and/or kV according to patient size, radiation dose was kept as low as reasonably achievable to obtain optimal diagnostic quality images. DICOM format imag e data is available electronically for review and comparison. FINDINGS: Lungs: Dense consolidation is present in the right lower lobe with air bronchograms. The left lung i s clear. Mediastinum: There is good visualization of the great vessels of the middle mediastinum. No evidenc e of mediastinal or hilar adenopathy/mass. Coronary artery calcifications are present. There is no pe ricardial effusion. Pleurae: There are bilateral [id number] pleural effusions right greater than left which exten d up to the lung apex. Axillae: Unremarkable. Bony Structures: Unremarkable. Miscellaneous: The examination was extended to include the upper abdomen, and both adrenal glands ar e normal in size and configuration. CONCLUSION: 1. Dense consolidation in the right lower lobe with air bronchograms characteristic of pneumonia. Th ere is no distinct mass. Follow-up plain films would be recommended after treatment to ensure resolut ion. 2. Small to moderate bilateral pleural effusions right greater than left. 3. Coronary artery calcifications. Electronically signed by: Kenny Martell MD 04/14/2018 1:17 PM EDT
[2018-04-14] MEDS ORDERED: Furosemide 40 MG Tablet PO SCH (13:30)
--- NOTE | 2018-04-14 15:51 | P.PN ---
Subjective Interval history: Patient is seen lying in bed. She continues to be very nauseated and has been unable to keep down any food or significant fluids. Denies any chest pain or shortness of breath. No history of smoking or lung disease per her report. Does acknowledge struggling with controlling her diabetes for quite some time. Physical Exam Vital signs: Vital Signs 04/13/18 16:01 04/13/18 20:00 04/14/18 00:00 Temperature 98.4 F 98.5 F Pulse Rate 87 89 87 Respiratory Rate 20 16 16 Blood Pressure 163/71 H 156/69 H 131/60 Pulse Oximetry 96 91 L 89 L 04/14/18 04:00 04/14/18 07:59 04/14/18 11:33 Temperature 98.6 F 98.9 F 98.2 F Pulse Rate 86 93 H 95 H Respiratory Rate 16 20 18 Blood Pressure 177/68 H 204/83 H 196/86 H Pulse Oximetry 87 L 98 100 Intake & Output 04/13/18 04/14/18 04/14/18 18:59 06:59 18:59 Intake Total 1000 / 1000 3400 / 3400 1000 / 1000 Balance 1000 / 1000 3400 / 3400 1000 / 1000 Intake: IV 1000 / 1000 1000 / 1000 1000 / 1000 NS Inj 1,000 ML @ 100 mls/hr IV 1000 / 1000 1000 / 1000 1000 / 1000 .CONT .Q10H ALVARADO Rx#:[id number] Other 2400 / 2400 Other: Other Intake Source Saline Solution # Voids 1 2 Date of Last Bowel Movement 04/12/18 Narrative: GENERAL: Well-nourished, well-developed adult female in no obvious distress. SKIN: Warm and dry. HEAD: Atraumatic. Normocephalic. CARDIOVASCULAR: Regular rate and rhythm. RESPIRATORY: No accessory muscle use. Clear to auscultation. Breath sounds equal bilaterally. GASTROINTESTINAL: Abdomen soft, non-tender, distended. Positive bowel sounds. MUSCULOSKELETAL: Extremities without clubbing, cyanosis, or edema. No obvious deformities. NEUROLOGICAL: Awake and alert. No obvious cranial nerve deficits. Motor grossly within normal limits. Normal speech. PSYCHIATRIC: Appropriate mood and affect; insight and judgment good. Results - Labs CBC & Chem 7: 04/14/18 09:31 04/14/18 09:31 Laboratory Results - last 24 hr 04/13/18 04/13/18 04/13/18 06:50 18:46 21:22 WBC RBC Hgb Hct MCV MCH MCHC RDW Plt Count MPV Neut % (Auto) Lymph % (Auto) [place] % (Auto) Eos % (Auto) Baso % (Auto) Neut # (Auto) Lymph # (Auto) [place] # (Auto) Eos # (Auto) Baso # (Auto) WBC Differential Differential Comment Sodium Potassium Chloride Carbon Dioxide Anion Gap BUN Creatinine Estimated GFR POC Glucose 403 H 316 H Random Glucose Hemoglobin A1c 11.6 H Calcium Total Bilirubin AST ALT Alkaline Phosphatase Total Protein Albumin 04/14/18 04/14/18 04/14/18 08:23 09:31 09:31 WBC 9.4 RBC 2.98 L Hgb 8.8 L Hct 26.6 L MCV 89.5 MCH 29.6 MCHC 33.1 RDW 13.6 Plt Count 189 MPV 9.1 Neut % (Auto) 83.6 H Lymph % (Auto) 8.4 L [place] % (Auto) 7.7 Eos % (Auto) 0.1 Baso % (Auto) 0.2 Neut # (Auto) 7.9 H Lymph # (Auto) 0.8 L [place] # (Auto) 0.7 Eos # (Auto) 0.0 Baso # (Auto) 0.0 WBC Differential . Differential Comment Auto diff final Sodium 138 Potassium 3.5 Chloride 104 Carbon Dioxide 23.6 Anion Gap 10 BUN 36 H Creatinine 1.38 H Estimated GFR 39 L POC Glucose 109 Random Glucose 109 H D Hemoglobin A1c Calcium 8.4 L Total Bilirubin 0.3 AST 34 ALT 18 Alkaline Phosphatase 79 Total Protein 6.9 Albumin 2.5 L 04/14/18 14:00 WBC RBC Hgb Hct MCV MCH MCHC RDW Plt Count MPV Neut % (Auto) Lymph % (Auto) [place] % (Auto) Eos % (Auto) Baso % (Auto) Neut # (Auto) Lymph # (Auto) [place] # (Auto) Eos # (Auto) Baso # (Auto) WBC Differential Differential Comment Sodium Potassium Chloride Carbon Dioxide Anion Gap BUN Creatinine Estimated GFR POC Glucose 180 H Random Glucose Hemoglobin A1c Calcium Total Bilirubin AST ALT Alkaline Phosphatase Total Protein Albumin - Imaging Impressions Chest CT 04/14/18 00:00 CONCLUSION: 1. Dense consolidation in the right lower lobe with air bronchograms characteristic of pneumonia. There is no distinct mass. Follow-up plain films would be recommended after treatment to ensure resolution. 2. Small to moderate bilateral pleural effusions right greater than left. 3. Coronary artery calcifications. Assessment and Plan - Assessment (1) Intractable nausea and vomiting Code(s): R11.2 - Nausea with vomiting, unspecified Status: Acute (2) Renal insufficiency Code(s): N28.9 - Disorder of kidney and ureter, unspecified Status: Acute (3) PNA (pneumonia) Code(s): J18.9 - Pneumonia, unspecified organism Status: Acute (4) DM (diabetes mellitus) Code(s): E11.9 - Type 2 diabetes mellitus without complications Status: Acute - Plan 66-year-old female with a PMH of HTN, DM, IBS and CHF (Unknown EF) presented to ER with complaints of abdominal pain, nausea and vomiting starting Wednesday 04/11. The patient is visiting from [place]. Intractable Nausea/Vomiting: s/p Zofran/Reglan w/ minimal improvement, continue w/ antiemetics and analgesics as needed, CT Abd/Pelvis w/ no acute intra-abdominal pathology, images reviewed, likely gastroenteritis. +Decreased PO intake, IVF for hydration, diet as tolerated. Community-acquired PNA: CT Abd/Pelvis w/ 4cm masslike area of consolidation RLL , started on Levaquin IV, pt will need outpatient follow up imaging to exclude underlying neoplasm. BELKIS: Creatinine 1.56 at admit, no previous labs for comparison, presumably new , IVF for hydration, U/a negative for UTI, monitor I/O, repeat labs am. DM: Uncontrolled, mild acidosis but no clear DKA, BS >600, s/p Insulin in ER, IVF for hydration, Sliding scale w/ Accu-Cheks. Levemir 10u, check Hgb A1c. BG improving, continue to monitor. DVT Prophylaxis: SCD/Teds Discharge Planning: Plan to discharge if tolerating oral intake and Creatinine improves. (1) Intractable nausea and vomiting Qualifiers: Vomiting type: unspecified Qualified Code(s): R11.2 - Nausea with vomiting, unspecified
[2018-04-14] MEDS: Insulin Detemir Inj 1,000 UNIT/10 ML Vial SQ SCH (21:35)
[2018-04-15] MEDS: Sod Chloride 0.9% Inj 1,000 ML IV.CONT SCH (02:22)
[2018-04-15 08:02] VITALS: PULSE 83; RESP 16; TEMP 98.8; O2SAT 95
[2018-04-15 08:09] VITALS: BP 172/84
--- NOTE | 2018-04-15 08:10 | P.PN ---
Subjective Interval history: Patient seen sitting up in bed. She reports that she is feeling much better. She has been able to tolerate some food but is not very hungry. No further nausea or vomiting. No chest pain or shortness of breath. No fever or chills Physical Exam Vital signs: Vital Signs 04/14/18 11:33 04/14/18 16:09 04/14/18 20:00 Temperature 98.2 F 99.6 F 98.8 F Pulse Rate 95 H 90 99 H Respiratory Rate 18 20 20 Blood Pressure 196/86 H 188/81 H 185/78 H Pulse Oximetry 100 95 92 L 04/15/18 00:00 04/15/18 04:00 04/15/18 08:00 Temperature 98.7 F 99.1 F 98.8 F Pulse Rate 78 75 83 Respiratory Rate 18 18 16 Blood Pressure 170/80 H 175/88 H 184/85 H Pulse Oximetry 98 98 95 Intake & Output 04/14/18 04/15/18 04/15/18 18:59 06:59 18:59 Intake Total 3000 / 3000 750 / 750 Balance 3000 / 3000 750 / 750 Intake: IV 1500 / 1500 650 / 650 NS Inj 1,000 ML @ 100 mls/hr IV 1500 / 1500 500 / 500 .CONT .Q10H ALVARADO Rx#:[id number] Levaquin 750 mg Premix Inj 150 150 / 150 ML @ 100 mls/hr IV.SIG Q48H ALVARADO Rx#:[id number] Oral 100 / 100 Other 1500 / 1500 Other: Other Intake Source Saline Solution # Voids 3 Date of Last Bowel Movement 04/12/18 Narrative: GENERAL: Well-nourished, well-developed adult female in no obvious distress. SKIN: Warm and dry. HEAD: Atraumatic. Normocephalic. CARDIOVASCULAR: Regular rate and rhythm. RESPIRATORY: No accessory muscle use. Clear to auscultation. Breath sounds equal bilaterally. GASTROINTESTINAL: Abdomen soft, non-tender, distended. Positive bowel sounds. MUSCULOSKELETAL: Extremities without clubbing, cyanosis, or edema. No obvious deformities. NEUROLOGICAL: Awake and alert. No obvious cranial nerve deficits. Motor grossly within normal limits. Normal speech. PSYCHIATRIC: Appropriate mood and affect; insight and judgment good. Results - Labs CBC & Chem 7: 04/14/18 09:31 04/14/18 09:31 Laboratory Results - last 24 hr 04/14/18 04/14/18 04/14/18 08:23 09:31 09:31 WBC 9.4 RBC 2.98 L Hgb 8.8 L Hct 26.6 L MCV 89.5 MCH 29.6 MCHC 33.1 RDW 13.6 Plt Count 189 MPV 9.1 Neut % (Auto) 83.6 H Lymph % (Auto) 8.4 L Andrew % (Auto) 7.7 Eos % (Auto) 0.1 Baso % (Auto) 0.2 Neut # (Auto) 7.9 H Lymph # (Auto) 0.8 L Andrew # (Auto) 0.7 Eos # (Auto) 0.0 Baso # (Auto) 0.0 WBC Differential . Differential Comment Auto diff final Sodium 138 Potassium 3.5 Chloride 104 Carbon Dioxide 23.6 Anion Gap 10 BUN 36 H Creatinine 1.38 H Estimated GFR 39 L POC Glucose 109 Random Glucose 109 H D Calcium 8.4 L Total Bilirubin 0.3 AST 34 ALT 18 Alkaline Phosphatase 79 Total Protein 6.9 Albumin 2.5 L 04/14/18 04/14/18 04/14/18 14:00 17:29 21:27 WBC RBC Hgb Hct MCV MCH MCHC RDW Plt Count MPV Neut % (Auto) Lymph % (Auto) Andrew % (Auto) Eos % (Auto) Baso % (Auto) Neut # (Auto) Lymph # (Auto) Andrew # (Auto) Eos # (Auto) Baso # (Auto) WBC Differential Differential Comment Sodium Potassium Chloride Carbon Dioxide Anion Gap BUN Creatinine Estimated GFR POC Glucose 180 H 239 H 242 H Random Glucose Calcium Total Bilirubin AST ALT Alkaline Phosphatase Total Protein Albumin - Imaging Impressions Chest CT 04/14/18 00:00 CONCLUSION: 1. Dense consolidation in the right lower lobe with air bronchograms characteristic of pneumonia. There is no distinct mass. Follow-up plain films would be recommended after treatment to ensure resolution. 2. Small to moderate bilateral pleural effusions right greater than left. 3. Coronary artery calcifications. Assessment and Plan - Assessment (1) Intractable nausea and vomiting Code(s): R11.2 - Nausea with vomiting, unspecified Status: Resolved (2) Renal insufficiency Code(s): N28.9 - Disorder of kidney and ureter, unspecified Status: Chronic (3) PNA (pneumonia) Code(s): J18.9 - Pneumonia, unspecified organism Status: Acute (4) DM (diabetes mellitus) Code(s): E11.9 - Type 2 diabetes mellitus without complications Status: Chronic - Plan 66-year-old female with a PMH of HTN, DM, IBS and CHF (Unknown EF) presented to ER with complaints of abdominal pain, nausea and vomiting starting Wednesday 04/11. The patient is visiting from [place]. Intractable Nausea/Vomiting: s/p Zofran/Reglan w/ minimal improvement, continue w/ antiemetics and analgesics as needed, CT Abd/Pelvis w/ no acute intra-abdominal pathology, images reviewed, likely gastroenteritis. +Decreased PO intake, IVF for hydration, diet as tolerated. Improving. Community-acquired PNA: CT Abd/Pelvis w/ 4cm masslike area of consolidation RLL , started on Levaquin IV, pt will need outpatient follow up imaging to exclude underlying neoplasm. BELKIS: Creatinine 1.56 at admit, no previous labs for comparison, IVF for hydration, U/a negative for UTI, monitor I/O, repeat labs am. Mild improvement only; possible CKD. Stop Lasix. DM: Uncontrolled, mild acidosis but no clear DKA, BS >600, s/p Insulin in ER, IVF for hydration, Sliding scale w/ Accu-Cheks. Levemir 10u, check Hgb A1c. BG improving, continue to monitor. DVT Prophylaxis: SCD/Teds Discharge Planning: Okay to discharge if tolerating meals and sugar is <200 (1) Intractable nausea and vomiting Qualifiers: Vomiting type: unspecified Qualified Code(s): R11.2 - Nausea with vomiting, unspecified
--- NOTE | 2018-04-15 08:13 | P.DS ---
Date of admission: 04/12/18 20:48 Primary care physician: UNKNOWN Attending physician on discharge: Ramona Fernandez Anticipated date of discharge: 04/15/18 Brief History from admission: This is a 66-year-old female with a PMH of HTN, DM, IBS and CHF (Unknown EF) presented to ER with complaints of abdominal pain, nausea and vomiting starting yesterday. Denies fever, chills or diarrhea. No reported sick contacts or recent travel. Reports decreased PO intake due to symptoms. On arrival, BP 186 /92, HR 92, O2 sat 98% on RA, Afebrile. WBC 11.5. Creatinine 1.56, no previous labs for comparison. AG 16. BS greater than 600. Beta hydroxy 2.69. Lipase 44. UA negative for UTI. The Abdomen/Pelvis no acute abdominal findings, 4 cm masslike consolidation right lower lobe recommendation for follow -up imaging. S/p Zofran, Reglan and Morphine in ER w/ minimal improvement. DS: Diagnosis - Discharge Diagnosis (1) Intractable nausea and vomiting Status: Resolved (2) Renal insufficiency Status: Chronic (3) PNA (pneumonia) Status: Acute (4) DM (diabetes mellitus) Status: Chronic (5) Acute hyperglycemia Status: Resolved DS: Medications - Discharge Medications Prescriptions: levofloxacin 750 mg PO DAILY #7 tab ondansetron 4 mg PO Q6H PRN #10 tab PRN Reason: Nausea Or Vomiting DS: Summary Hospital Course: 66-year-old female with a PMH of HTN, DM, IBS and CHF (Unknown EF) presented to ER with complaints of abdominal pain, nausea and vomiting starting Wednesday 04/11. The patient is visiting from [place]. Found to have blood glucose + 600 at admit; mild acidosis but no clear DKA. HA1C 11+; patient endorsed history of poor control of DM. Nausea vomiting improved with resolution of hyperglycemia, CT Abd/Pelvis w/ no acute intra-abdominal pathology, images reviewed, likely gastroenteritis. Also found to have community-acquired PNA: CT chest 4cm masslike area of consolidation RLL, started on Levaquin IV, pt will need outpatient follow up imaging to exclude underlying neoplasm. Creatinine 1.56 at admit, no previous labs for comparison, IVF for hydration with moderate improvement only; possible CKD - f/u with primary. - Time Spent with Patient Total time spent providing and/or coordinating discharge services: Less than 30 minutes - Quality: VTE Deep Vein Thrombosis/Pulmonary Embolism Present on Admission: No Exam Vital signs: Vital Signs 04/14/18 11:33 04/14/18 16:09 04/14/18 20:00 Temperature 98.2 F 99.6 F 98.8 F Pulse Rate 95 H 90 99 H Respiratory Rate 18 20 20 Blood Pressure 196/86 H 188/81 H 185/78 H Pulse Oximetry 100 95 92 L 04/15/18 00:00 04/15/18 04:00 04/15/18 08:00 Temperature 98.7 F 99.1 F 98.8 F Pulse Rate 78 75 83 Respiratory Rate 18 18 16 Blood Pressure 170/80 H 175/88 H 184/85 H Pulse Oximetry 98 98 95 04/15/18 08:09 Temperature Pulse Rate Respiratory Rate Blood Pressure 172/84 H Pulse Oximetry Intake & Output 04/14/18 04/15/18 04/15/18 18:59 06:59 18:59 Intake Total 3000 / 3000 750 / 750 Balance 3000 / 3000 750 / 750 Intake: IV 1500 / 1500 650 / 650 NS Inj 1,000 ML @ 100 mls/hr IV 1500 / 1500 500 / 500 .CONT .Q10H ALVARADO Rx#:[id number] Levaquin 750 mg Premix Inj 150 150 / 150 ML @ 100 mls/hr IV.SIG Q48H ALVARADO Rx#:[id number] Oral 100 / 100 Other 1500 / 1500 Other: Other Intake Source Saline Solution # Voids 3 Date of Last Bowel Movement 04/12/18 Narrative: GENERAL: Well-nourished, well-developed adult female in no obvious distress. SKIN: Warm and dry. HEAD: Atraumatic. Normocephalic. CARDIOVASCULAR: Regular rate and rhythm. RESPIRATORY: No accessory muscle use. Clear to auscultation. Breath sounds equal bilaterally. GASTROINTESTINAL: Abdomen soft, non-tender, distended. Positive bowel sounds. MUSCULOSKELETAL: Extremities without clubbing, cyanosis, or edema. No obvious deformities. NEUROLOGICAL: Awake and alert. No obvious cranial nerve deficits. Motor grossly within normal limits. Normal speech. PSYCHIATRIC: Appropriate mood and affect; insight and judgment good. Results Procedures completed during hospitalization: none Labs on day of discharge: Labs from last 24 hours 04/14/18 04/14/18 04/14/18 21:27 17:29 14:00 WBC RBC Hgb Hct MCV MCH MCHC RDW Plt Count MPV Neut % (Auto) Lymph % (Auto) [place] % (Auto) Eos % (Auto) Baso % (Auto) Neut # (Auto) Lymph # (Auto) [place] # (Auto) Eos # (Auto) Baso # (Auto) WBC Differential Differential Comment Sodium Potassium Chloride Carbon Dioxide Anion Gap BUN Creatinine Estimated GFR POC Glucose 242 H 239 H 180 H Random Glucose Calcium Total Bilirubin AST ALT Alkaline Phosphatase Total Protein Albumin 04/14/18 04/14/18 04/14/18 09:31 09:31 08:23 WBC 9.4 RBC 2.98 L Hgb 8.8 L Hct 26.6 L MCV 89.5 MCH 29.6 MCHC 33.1 RDW 13.6 Plt Count 189 MPV 9.1 Neut % (Auto) 83.6 H Lymph % (Auto) 8.4 L [place] % (Auto) 7.7 Eos % (Auto) 0.1 Baso % (Auto) 0.2 Neut # (Auto) 7.9 H Lymph # (Auto) 0.8 L [place] # (Auto) 0.7 Eos # (Auto) 0.0 Baso # (Auto) 0.0 WBC Differential . Differential Comment Auto diff final Sodium 138 Potassium 3.5 Chloride 104 Carbon Dioxide 23.6 Anion Gap 10 BUN 36 H Creatinine 1.38 H Estimated GFR 39 L POC Glucose 109 Random Glucose 109 H D Calcium 8.4 L Total Bilirubin 0.3 AST 34 ALT 18 Alkaline Phosphatase 79 Total Protein 6.9 Albumin 2.5 L - Impressions ITS Impressions Abdomen/Pelvis CT 04/12/18 19:48 CONCLUSION: 1. Greater than 4 cm area of masslike consolidation in the right lower lobe adjacent to the right hemidiaphragm with associated bilateral pleural effusions , right greater than left. Since there are portions of this opacity that are devoid of air bronchograms, recommend follow-up imaging to radiographic resolution to help exclude a coexistent neoplasm. 2. No concerning findings in the abdomen or pelvis. Chest CT 04/14/18 00:00 CONCLUSION: 1. Dense consolidation in the right lower lobe with air bronchograms characteristic of pneumonia. There is no distinct mass. Follow-up plain films would be recommended after treatment to ensure resolution. 2. Small to moderate bilateral pleural effusions right greater than left. 3. Coronary artery calcifications. Discharge Plan - Discharge Disposition Patient Disposition: 01 Discharge Home - Discharge Condition Condition: Stable - Discharge Order Discharge Orders: Discharge Order (Routine); Ordered 04/15/18 Ordered By: Makeda Thomas - Discharge Details Discharge Comment: Recommending that patient continue Levaquin for 7 days. Also recommending that she follow-up with her primary care physician and repeat chest imaging to confirm that consolidation in right lung has resolved and that there is no underlying pathology. - Physicians Team Primary Care Provider: UNKNOWN, Attending Provider: Ramona Fernandez
[2018-04-15] MEDS ORDERED: hydroCHLOROthiazide 25 MG Tablet PO SCH (09:00)
[2018-04-15] MEDS ORDERED: Lisinopril 20 MG Tablet PO SCH (09:00)
[2018-04-15] MEDS ORDERED: levoFLOXacin 750 MG Tablet PO SCH (09:00)
[2018-04-15] MEDS: Insulin NovoLOG Aspart Correctional Sugar Inj SQ SCH (09:26)
== END 2018-04-15 10:09 | disposition home or self-care (01) ==
LOC: NEPE 18:02 → NEDA 18:02 → NEPHCDU 22:17
PROVIDERS: ADMIT Internal Medicine; ATTEND Internal Medicine